=== PATIENT | male | born 1990 ===

== ENCOUNTER → 2019-03-08 | Outpatient (CLI) | payer SELFPAY ==
[~2019-03-08] MED LIST: DIAZ5 PO; HYDACE5 PO
[2019-03-10 00:06] LABS: HBSAG SCREEN Negative (Negative); HCV ANTIBODY <0.1 (0.0-0.9); HIV SCREEN 4TH GENERATION WRFX Non Reactive (Non Reactive)
== END | disposition home or self-care (01) ==
LOC: LAB EV 11:19
DX: Z00.00 Encounter for general adult medical examination without abnormal findings (principal)
CPT/HCPCS: 84460; 86317; 86803; 87340; 87389

== ENCOUNTER 2020-11-12 18:05 | Emergency (ER) | payer OTHER ==
[~2020-11-12] VITALS: Ht 167.6 cm; Wt 72.6 kg
[2020-11-12] MEDS ORDERED: Cyclobenzaprine5 MG PO (19:32)
== END 2020-11-12 20:01 | disposition home or self-care (01) ==
LOC: ER 18:05
DX: S43.402A Unspecified sprain of left shoulder joint, initial encounter (principal); W17.2XXA Fall into hole, initial encounter; Y93.89 Activity, other specified; Y92.009 Unspecified place in unspecified non-institutional (private) residence as the place of occurrence of the external cause
CPT/HCPCS: 73030; 99283-25